=== PATIENT | female | born 1945 | race Caucasian/White ===

== ENCOUNTER → 2017-02-04 | Outpatient (CLI) | payer MEDICARE, OTHER ==
--- NOTE | 2017-02-07 20:13 | Diagnostic Imaging Report ---
Bilateral screening mammogram 2D views with tomosynthesis The current study was also evaluated with a Computer Aided Detection (CAD) system. INDICATION: Screening. No current complaints stated on the questionnaire. COMPARISON: None available. This is essentially a baseline study. FINDINGS: The breasts are composed of scattered fibroglandular densities. Scattered benign-appearing calcifications are seen. There is suggestion of tiny intramammary lymph nodes seen in the breasts. No suspicious mass, architectural distortion or calcification seen otherwise. IMPRESSION: No mammographic evidence of malignancy. ACR BI-RADS Category 2: Benign findings. Result letter will be mailed to the patient. Note: At least 10% of breast cancer is not imaged by mammography. Dictated by: Dictated on workstation # [id number]
== END ==
LOC: RAD 09:53
PROVIDERS: ATTEND Nurse Practitioner Family
DX: Z12.31 Encounter for screening mammogram for malignant neoplasm of breast (principal)
CPT/HCPCS: 77067

== ENCOUNTER → 2018-09-06 | Outpatient (CLI) | payer MEDICARE, OTHER ==
--- NOTE | 2018-09-06 13:47 | Diagnostic Imaging Report ---
PROCEDURE: US right lower extremity venous. TECHNIQUE: Multiple Real-time grayscale images were obtained over the right lower extremity in various projections. Additional spectral analysis and color Doppler duplex images were also obtained. INDICATION: Right lower extremity pain and swelling. FINDINGS: There is no evidence of right lower extremity DVT. The right lower extremity deep venous system shows normal compressibility with normal response to augmentation and Valsalva. No fluid collection or mass is seen. IMPRESSION: No evidence of right lower extremity DVT. Dictated by: Dictated on workstation # [id number]
== END ==
LOC: RAD 13:20
PROVIDERS: ATTEND Nurse Practitioner Family
DX: L53.9 Erythematous condition, unspecified (principal); M79.89 Other specified soft tissue disorders

== ENCOUNTER → 2019-01-22 | Outpatient (CLI) | payer MEDICARE, OTHER ==
--- NOTE | 2019-01-22 11:48 | Diagnostic Imaging Report ---
INDICATION: Chest pain. COMPARISON: None available. TECHNIQUE: Frontal and lateral radiographs of the chest dated January 22, 2019. FINDINGS: The cardiac silhouette is within normal limits in size. No significant pulmonary vascular congestion. The lungs are clear. No pleural effusion. No pneumothorax. [place] right curvature of the visualized thoracolumbar spine. Scattered osseous degenerative changes without acute osseous abnormality. IMPRESSION: Curvature of the spine with scattered degenerative changes without acute cardiopulmonary abnormality. Called to Mel at 11:45 a.m. by cvb (for OR) Dictated by: Dictated on workstation # [id number]
== END ==
LOC: RAD 10:58
PROVIDERS: ATTEND Nurse Practitioner Family
DX: M47.815 Spondylosis without myelopathy or radiculopathy, thoracolumbar region (principal); R07.9 Chest pain, unspecified
CPT/HCPCS: 71046

== ENCOUNTER → 2019-01-22 | Outpatient (CLI) | payer MEDICARE, OTHER ==
--- NOTE | 2019-01-22 10:55 | Diagnostic Imaging Report ---
INDICATION: Screening The current study was also evaluated with a Computer Aided Detection (CAD) system. 3-D Tomographic imaging was also performed. INDICATION: Screening. The current study was also evaluated with a Computer Aided Detection (CAD) system. 3-D Tomographic imaging was also performed. COMPARED: 02/04/2017 FINDINGS: The fibroglandular tissue is heterogeneously dense bilaterally. There is an unchanged small nodular density in the upper outer right breast. A few benign type calcifications. There is no new dominant mass, spiculated lesions or suspicious calcification identified. Skin and nipples and axillae are unremarkable. IMPRESSION: Category 2 benign. ACR BI-RADS Category 2: Benign findings. Result letter will be mailed to the patient. Note: At least 10% of breast cancer is not imaged by mammography. Dictated by: Dictated on workstation # [id number]
== END ==
LOC: RAD 09:34
PROVIDERS: ATTEND Family Medicine
DX: Z12.31 Encounter for screening mammogram for malignant neoplasm of breast (principal)
CPT/HCPCS: 77067

== ENCOUNTER → 2019-01-23 | Outpatient (CLI) | payer MEDICARE, OTHER ==
--- NOTE | 2019-01-23 11:54 | Diagnostic Imaging Report ---
EXAM: Ultrasound of the spleen and left upper quadrant. TECHNIQUE: Focused ultrasound of the left upper quadrant with attention to the spleen. REASON FOR EXAM: Patient hit the left upper quadrant rib area on the headboard of the bed. Subsequent left upper quadrant pain. COMPARISON: Chest radiograph of 01/22/2019. FINDINGS: The spleen has a normal sonographic appearance measuring 8.3 x 8.6 x 4.7 cm. No evidence of splenic laceration or perisplenic hematoma. No free fluid is seen in the left upper quadrant. The left kidney is visualized measuring 9.0 cm in length. No evidence of hydronephrosis, renal calculus, or solid renal mass is seen. The area of pain in the left upper quadrant demonstrates no focal fluid collection or soft tissue mass. IMPRESSION: Unremarkable sonographic appearance of the left upper quadrant and spleen. No free fluid in the left upper quadrant. Dictated by: Dictated on workstation # [id number]
== END ==
LOC: RAD 10:50
PROVIDERS: ATTEND Nurse Practitioner Family
DX: R10.12 Left upper quadrant pain (principal)
CPT/HCPCS: 76705

== ENCOUNTER → 2019-05-16 | Outpatient (CLI) | payer MEDICARE, OTHER ==
--- NOTE | 2019-05-16 13:29 | Diagnostic Imaging Report ---
PROCEDURE: US Non-ob pelvis comp/trans. TECHNIQUE: Multiple realtime grayscale images were obtained of the pelvis in various projections endovaginally. Transabdominal imaging was also performed. INDICATION: Vaginal bleeding. Patient is postmenopausal. FINDINGS: The uterus is anteverted measuring 5.8 x 2.6 x 3.7 cm. There is a finding suggestive of an echogenic mass within the endometrium measuring approximately 14 mm x 20 mm x 17 mm. No myometrial mass is detected. Left ovary and right ovary were not well visualized. There is a cystic lesion in the right adnexa measuring 2.3 cm in diameter. No free fluid is seen. IMPRESSION: 1. Echogenic endometrial mass suggestive of endometrial polyp versus neoplasm. Tissue sampling would be recommended. 2. 2.3 cm right adnexal cyst. Dictated by: Dictated on workstation # [id number]
== END ==
LOC: RAD 11:47
PROVIDERS: ATTEND Family Medicine
DX: N85.8 Other specified noninflammatory disorders of uterus (principal); N95.0 Postmenopausal bleeding
CPT/HCPCS: 76830; 76856

== ENCOUNTER → 2019-12-26 | Outpatient (CLI) | payer MEDICARE, OTHER ==
--- NOTE | 2019-12-26 13:25 | Diagnostic Imaging Report ---
CT Lung Screening INDICATION: 57 pack year smoking history for baseline low-dose CT screening TECHNIQUE: Noncontrast, low-dose CT imaging performed according to the lung cancer screening protocol. Auto Exposure Controls were utilize during the CT exam to meet ALARA standards for radiation dose reduction. COMPARISON:Baseline FINDINGS:No lung mass or suspicious pulmonary nodularity. No findings of lymphadenopathy. No chest effusion. There is mild aortic atherosclerotic calcifications without aneurysm. There is moderate coronary arterial atherosclerotic vascular calcifications. No effusion or pneumothorax. The visualized upper abdomen demonstrates a right adrenal nodule of 2 cm maximal. It has areas of negative Hounsfield units and macroscopic fat consistent with a fat-containing adenoma. IMPRESSION: IMPRESSION:No suspicious lung mass LUNG-RADS CATEGORY:Category 1 MODIFIER: OTHER SIGNIFICANT FINDINGS:Benign fat-containing right adrenal adenoma and thoracic atherosclerotic vascular calcifications. Dictated by: Dictated on workstation # [id number]
== END ==
LOC: RAD 11:45
PROVIDERS: ATTEND Family Medicine
DX: Z12.2 Encounter for screening for malignant neoplasm of respiratory organs (principal); F17.210 Nicotine dependence, cigarettes, uncomplicated

== ENCOUNTER → 2020-11-11 | Outpatient (CLI) | payer MEDICARE, OTHER ==
--- NOTE | 2020-11-11 13:19 | Diagnostic Imaging Report ---
INDICATION: Cervical radiculopathy. FINDINGS: 3 views. There is loss of normal lordotic curve. There is a severe degenerative disc disease from C3 through C7 with loss of disc space. Sclerotic endplates with hypertrophic lipping of the endplates anteriorly noted throughout. Body height is well-maintained. The atlantoaxial joint appears normal. Facets show good alignment with moderate degenerative changes throughout. The prevertebral soft tissues are not widened. IMPRESSION: Severe degenerative cervical disc disease from C3 through C7. Dictated by: Dictated on workstation # [id number]
== END ==
LOC: RAD 11:37
PROVIDERS: ATTEND Family Medicine
DX: M50.123 Cervical disc disorder at C6-C7 level with radiculopathy (principal)
CPT/HCPCS: 72040

== ENCOUNTER → 2021-01-08 | Outpatient (CLI) | payer MEDICARE, OTHER ==
--- NOTE | 2021-01-08 13:30 | Diagnostic Imaging Report ---
EXAMINATION: CT chest without contrast (lung screening). TECHNIQUE: Multiple contiguous axial images were obtained through the chest without the use of intravenous contrast according to lung cancer screening protocol. All CT scans use one or more of the following dose optimizing techniques: automated exposure control, MA and/or KvP adjustment based on patient size and exam type or iterative reconstruction. HISTORY: 58 pack year history of smoking. COMPARISON: 12/26/2019 FINDINGS: Thyroid: The thyroid is normal. Mediastinum: Heart size is normal without significant pericardial effusion. Calcifications of the aorta and coronary vessels. Thoracic aorta is normal in caliber. No suspicious lymphadenopathy. Lungs and airways: There are background emphysematous changes of lungs without consolidation, pleural effusion, or pneumothorax. No suspicious pulmonary nodule. The airways are normal. Upper abdomen: Stable right adrenal lesion. Musculoskeletal: Degenerative changes of the spine without suspicious osseous lesion or compression fracture. IMPRESSION: 1. No suspicious pulmonary nodules. Recommend continued annual low-dose CT screening. LUNG-RADS CATEGORY: 1 MODIFIER: S Dictated by: Dictated on workstation # [id number]
== END ==
LOC: RAD 13:45
PROVIDERS: ATTEND Nurse Practitioner Family
DX: Z12.2 Encounter for screening for malignant neoplasm of respiratory organs (principal); F17.210 Nicotine dependence, cigarettes, uncomplicated
CPT/HCPCS: 71271

== ENCOUNTER 2021-01-13 08:49 | Outpatient (RCR) | payer MEDICARE, OTHER | END 2021-01-13 11:58 | disposition home or self-care (01) | PROVIDERS: ATTEND Family Medicine | DX: M50.30 Other cervical disc degeneration, unspecified cervical region (principal) ==

== ENCOUNTER 2021-03-19 13:21 | Outpatient (RCR) | payer MEDICARE, OTHER | END 2021-03-20 | disposition home or self-care (01) | PROVIDERS: ATTEND Family Medicine | DX: M54.12 Radiculopathy, cervical region (principal) ==

== ENCOUNTER 2021-04-10 15:06 | Outpatient (RCR) | payer MEDICARE, OTHER | END 2021-04-20 | disposition home or self-care (01) | PROVIDERS: ATTEND Family Medicine | DX: M54.12 Radiculopathy, cervical region (principal) ==

== ENCOUNTER → 2021-08-04 | Outpatient (CLI) | payer MEDICARE, OTHER ==
--- NOTE | 2021-08-04 15:22 | Diagnostic Imaging Report ---
INDICATION: Left leg swelling. Left leg venous Doppler study was performed in the routine fashion with color flow Doppler and waveform analysis. FINDINGS: The left common femoral vein, superficial femoral vein, popliteal vein and visualized portion of the posterior tibial vein show normal compressibility and venous flow patterns. There is normal augmentation. IMPRESSION: No evidence of deep vein thrombosis of the major veins of the left leg. Dictated by: Dictated on workstation # [id number]
== END ==
LOC: RAD 14:31
PROVIDERS: ATTEND Family Medicine
DX: M79.89 Other specified soft tissue disorders (principal)